=== PATIENT | male | born 1950 | race Caucasian/White ===

== ENCOUNTER 2017-03-18 01:24 | Emergency (ER) | payer MEDICARE, OTHER ==
[~2017-03-18 01:24] MED LIST: ALBU2.5V14 NEB; ALBU6.7H IH; ASPI81TA2 PO; DILT240C2 PO; DILT240T PO; FLUT1DIS3 PO; FURO80TA3 PO; HYDR-2762 PO; IPRA4AER AD; METF850T2 PO; NAPR500T3 PO; NYST60PO TD; POTA10CA PO; ZOLP10TA4 PF
--- NOTE | 2017-03-18 01:43 | ED.ADGEN ---
Past History Past Medical History: A-Fib, Arthritis, Asthma, CAD, CHF, COPD, Hypertension, Other Past Surgical History: No Surgical History, Cholecystectomy, Other Smoking: Cigarettes, Greater than 1 pack/day Alcohol Use: None Drug Use: None, Marijuana Adult General Chief Complaint Chief Complaint "... I guess.. I fell... or I blacked..out....".. " Hell .. I am just off.... " " I just left [place] yesterday....".. " I am short of breath... and just weak... and can't walk without falling..." HPI HPI Patient is a 66 year old male who presents with above hx and complaints. When paramedics arrived patient was hypoxic however was not on his nl. 2 L maintenance. Pt. has long hx. of COPD and does continue to smoke Tob. and MJ. Pt. advised he was discharged from [facility] yesterday for COPD and some bronchitis. Pt. somewhat poor historian. Pt. family called because of pt increased dyspnea , repeat falls and some confusion. Pt. complaints of increased coughing and dyspnea. Pt. denies any travel, or ill contacts. Pt. follows with Dr. Gunter. Review of Systems Review of Systems Constitutional: Subjective complaints of fever and chills [] Eyes: Denies change in visual acuity, redness, or eye pain [] HENT: Denies nasal congestion or sore throat [] Respiratory: complaints of cough and increased shortness of breath [] Cardiovascular: No additional information not addressed in HPI [] GI: Denies abdominal pain, nausea, vomiting, bloody stools or diarrhea [] : Denies dysuria or hematuria [] Musculoskeletal: Denies back pain or joint pain. Complaints of generalized weakness. Integument: Denies rash or skin lesions [] Neurologic: Denies headache, focal weakness or sensory changes []Complaints his balance is off and having difficultly in walking. Pt. states he is having some confusion. Endocrine: Denies polyuria or polydipsia [] Family History Family History Non-contributory Current Medications Current Medications Current Medications Medications (Trade) Dose Ordered Sig/Randy Start Time Stop Time Status Last Admin Dose Admin Albuterol/ Ipratropium (Duoneb) 3 ml 1X ONCE 03/18/17 01:45 03/18/17 02:14 DC 03/18/17 02:12 3 ML Azithromycin (Zithromax) 500 mg 1X ONCE 03/18/17 02:15 03/18/17 02:16 DC 03/18/17 02:15 500 MG Ceftriaxone Sodium (Rocephin Im) 2 gm 1X ONCE 03/18/17 04:00 03/18/17 04:01 DC 03/18/17 04:00 2 GM Lactated Ringer's (Iv Lactated Ringers) 1,000 ml @ 100 mls/hr Q10H 03/18/17 02:00 03/18/17 02:46 100 MLS/HR Lorazepam (Ativan) 1 mg 1X ONCE 03/18/17 04:00 03/18/17 04:01 DC 03/18/17 04:00 1 MG Magnesium Sulfate (Magnesium Sulfate PREMIX 2GM) 50 ml @ 25 mls/hr 1X ONCE 03/18/17 04:00 03/18/17 05:59 03/18/17 04:00 25 MLS/HR Methylprednisolone Sodium Succinate 125 mg 125 mg 1X ONCE 03/18/17 02:15 03/18/17 02:16 DC 03/18/17 02:15 125 MG See Nursing for home meds. Allergies Allergies Allergies Coded Allergies Type Severity Reaction Last Updated Verified No Known Drug Allergies 01/02/16 No Physical Exam Physical Exam Constitutional:moderate distress, non-toxic appearance. [] HENT: Normocephalic, atraumatic, bilateral external ears normal, oropharynx moist, no oral exudates, nose rhinorrhea. Eyes: PERRLA, EOMI, conjunctiva normal, no discharge. [] Neck: Normal range of motion, no tenderness, supple, no stridor. [] Cardiovascular: Tachycardia Heart rate, irregular rhythm, no murmur [, PMI to Lt. ] Lungs & Thorax: Bilateral breath sounds equal at apexes with scattered wheezes and rhonchi on auscultation []More rhonchi on rt mid and Lt posterior base. Abdomen: Bowel sounds normal, soft, no tenderness, no masses, no pulsatile masses. Old surgical scars.. Obese. Appears to have been getting heparin or lovenox injections in abdomen. Skin: Warm, dry, no erythema, no rash. Poor turgor. Back: No tenderness, no CVA tenderness. [] Extremities: No tenderness, no cyanosis, no clubbing, ROM intact, ankle edema. [ ] Neurologic: Alert and oriented X 3,, but slow to respond, does move all ext. on request, . distal sensory intact, Does appear to have trouble concentrating. Mild dis coordination. Psychologic: Affect anxious, judgement decrease insight, mood depressed. Current Patient Data Vital Signs Vital Signs Date Time Temp Pulse Resp B/P Pulse Ox O2 Delivery O2 Flow Rate FiO2 03/18/17 03:31 87 20 116/75 90 Nasal Cannula 6 03/18/17 01:25 98.0 Lab Results Laboratory Tests Test 03/18/17 01:30 03/18/17 02:25 Prothrombin Time 14.3SEC (9.4-11.4) H Prothrombin Time INR 1.4 (0.9-1.1) H PTT 26SEC (23-33) D-Dimer (Nelda) 1.20mg/L (0.00-0.50) H Urine Collection Type Unknown Urine Color Yellow Urine Clarity Clear Urine pH 5.0 Urine Specific [place] >=1.030 Urine Protein 100 mg/dl (NEG-TRACE) Urine Glucose (UA) Negmg/dL (NEG) Urine Ketones (Stick) Negmg/dL (NEG) Urine Blood Trace (NEG) Urine Nitrite Neg (NEG) Urine Bilirubin Neg (NEG) Urine Urobilinogen Dipstick 1mg/dL (0.2 mg/dL) Urine Leukocyte Esterase Neg (NEG) Urine RBC Occ/HPF (0-2) Urine WBC 1-4/HPF (0-4) Urine Squamous Epithelial Cells Few/LPF Urine Bacteria Few/HPF (0-FEW) Sodium Level 143mmol/L (136-145) Potassium Level 4.6mmol/L (3.5-5.1) Chloride Level 102mmol/L (98-107) Carbon Dioxide Level 42mmol/L (21-32) H Anion Gap -1 (6-14) L Blood Urea Nitrogen 20mg/dL (8-26) Creatinine 1.0mg/dL (0.7-1.3) Estimated GFR (Cockcroft-Gault) 74.5 Glucose Level 102mg/dL (70-99) H Calcium Level 9.1mg/dL (8.5-10.1) Magnesium Level 1.6mg/dL (1.8-2.4) L Total Bilirubin 0.5mg/dL (0.2-1.0) Direct Bilirubin 0.2mg/dL (0.0-0.2) Aspartate Amino Transferase (AST) 28U/L (15-37) Alanine Aminotransferase (ALT) 15U/L (16-63) L Alkaline Phosphatase 57U/L (46-116) Creatine Kinase 68U/L (39-308) Creatine Kinase MB (Mass) 0.7ng/mL (0.0-3.6) Creatine Kinase MB Relative Index 1.0% (0-4) Troponin I Quantitative < 0.017ng/mL (0-0.055) VV-Iey-Z-Type Natriuretic Peptide 1663pg/mL (0-124) H Total Protein 7.7g/dL (6.4-8.2) Albumin 3.4g/dL (3.4-5.0) Lipase 49U/L (73-393) L Urine Opiates Screen Pos (NEG) Urine Methadone Screen Neg (NEG) Urine Barbiturates Neg (NEG) Urine Phencyclidine Screen Neg (NEG) Urine Amphetamine/Methamphetamine Neg (NEG) Urine Benzodiazepines Screen Pos (NEG) Urine Cocaine Screen Neg (NEG) Urine Cannabinoids Screen Pos (NEG) Urine Ethyl Alcohol Neg (NEG) White Blood Count 73.6x10^3/uL (4.0-11.0) *H Red Blood Count 4.46x10^6/uL (4.30-5.70) Hemoglobin 13.3g/dL (13.0-17.5) Hematocrit 44.4% (39.0-53.0) Mean Corpuscular Volume 99fL (79-100) Mean Corpuscular Hemoglobin 30pg (25-35) Mean Corpuscular Hemoglobin Concent 30g/dL (31-37) L Red Cell Distribution Width 16.9% (11.5-14.5) H Platelet Count 182x10^3/uL (140-400) Neutrophils (%) (Auto) 88% (31-73) H Lymphocytes (%) (Auto) 5% (24-48) L Monocytes (%) (Auto) 5% (0-9) Eosinophils (%) (Auto) 1% (0-3) Basophils (%) (Auto) 1% (0-3) Neutrophils # (Auto) 64.6x10^3uL (1.8-7.7) H Lymphocytes # (Auto) 3.6x10^3/uL (1.0-4.8) Monocytes # (Auto) 3.7x10^3/uL (0.0-1.1) H Eosinophils # (Auto) 0.7x10^3/uL (0.0-0.7) Basophils # (Auto) 1.0x10^3/uL (0.0-0.2) H Segmented Neutrophils % 62% (35-66) Band Neutrophils % 15% (0-9) H Lymphocytes % 8% (24-48) L Monocytes % 3% (0-10) Eosinophils % 3% (0-5) Metamyelocytes % 7% (0-0) H Myelocytes % 2% (0-0) H Nucleated Red Blood Cells 2 Platelet Estimate Adequate (ADEQUATE) Hypochromasia Slight Anisocytosis Slight EKG EKG My interpretation of EKG shows tachycardia with[]irregular rhythm, afib in appearance. Radiology/Procedures Radiology/Procedures My interpretation of CXR shows cardiomegaly, COPD pattern, basilar infiltrates. Some increased cephalization consistent with CHF. CT head does show findings of a acute right sub-epidural hemorrhage with some midline shift. See formal report when available. Course & Med Decision Making Course & Med Decision Making Pertinent Labs and Imaging studies reviewed. (See chart for details). Discussed presentation, testing and tx. plan with Dr. Moore.-[facility]. Consult with Dr. Abebe. Pt. to be transferred to [facility] - ICU and repeat CT at 0800 hrs. Patient did advise that if he could not speak for himself- that Rodolfo Diaz at [phone] could make medical decisions on his behalf. Critical Care - 90 min. [] Final Impression Final Impression 1. Falling 2. COPD exacerbation 3. Pneumonia 4. Leukocytosis with bandemia 5. Hypo-magnesium 6. CHF 7. A. fib 8. Right sub-dural hemorrhage with possible midline shift 9. Marijuana and tobacco use [] Problems: Dragon Disclaimer Dragon Disclaimer This electronic medical record was generated, in whole or in part, using a voice recognition dictation system. KVNG RAYMOND MD Mar 18, 2017 01:43
[2017-03-18] MEDS: IPRATRPIUM/ALBUTEROL 0.5/2.5MG 3 ML NEBU. NEB ONE (02:12)
[2017-03-18] MEDS: AZITHROMYCIN 250 MG TABLET. PO ONE (02:15)
[2017-03-18] MEDS: methylPREDNISolone SOD SUCC PF 125 MG/2 ML VIAL. IV ONE (02:15)
[2017-03-18 02:19] LABS: ALBUMIN 3.4 g/dL (3.4-5.0); CALCIUM 9.1 mg/dL (8.5-10.1); DIRECT BILIRUBIN 0.2 mg/dL (0.0-0.2); GFR 74.5; MAGNESIUM 1.6 mg/dL (1.8-2.4); POTASSIUM 4.6 mmol/L (3.5-5.1); TOTAL BILIRUBIN 0.5 mg/dL (0.2-1.0); TOTAL PROTEIN 7.7 g/dL (6.4-8.2)
[2017-03-18 02:28] LABS: BARBITURATES NEG (NEG); BENZODIAZEPINES POS (NEG); CANNABINOIDS POS (NEG); COCAINE NEG (NEG); METHADONE NEG (NEG); OPIATES POS (NEG); PHENCYCLIDINE NEG (NEG)
[2017-03-18 02:30] LABS: AMPHETAMINE/METHAMPHETAMINE NEG (NEG)
--- NOTE | 2017-03-18 02:30 | RAD ---
PROCEDURE CT head without contrast 03/18/2017. HISTORY Weakness. Syncope and falls. TECHNIQUE Noncontrast images were performed. Exposure: One or more of the following individualized dose reduction techniques were utilized for this exam: 1. Automated exposure control. 2. Adjustment of the mA and/or kV according to patient size. 3. Use of iterative reconstruction technique. COMPARISON FINDINGS There is a subdural hemorrhage on the right side. This is seen over the frontal and parietal areas. It has greatest thickness of about 7 millimeters and appears acute. No intraparenchymal hemorrhage is seen. No other area of abnormal extra-axial fluid is identified. There is probably slight midline shift. This measures roughly 2-3 millimeters at the level of the frontal horns of the lateral ventricles. No area of abnormal density is identified within the brain. Bone windows reveal no apparent fracture of the skull or abnormal sinus or mastoid opacification. IMPRESSION Right-sided subdural hemorrhage with possible mild midline shift. Results were telephoned to Dr. Hickman in the emergency room at 2:28 a.m.. Electronically signed by: Darren Lancaster (Mar 18, 2017 02:29:08)
[2017-03-18 02:39] LABS: BACTERIA,URINE FEW /HPF (0-FEW); BILIRUBIN,URINE NEG (NEG); CLARITY,URINE CLEAR; COLOR,URINE YELLOW; GLUCOSE,URINE NEG (NEG); NITRITE,URINE NEG (NEG); RBC,URINE OCC /HPF (0-2); SQUAMOUS EPITHELIAL CELL,UR FEW /LPF; UROBILINOGEN,URINE 1 mg/dL (0.2 mg/dL)
[2017-03-18] MEDS: IV RINGERS SOLUTION,LACTATED 1,000 ML IV SCH (02:46)
--- NOTE | 2017-03-18 02:52 | EKG ---
[address] [address] Test Date: 2017-03-18 Test Time: 01:19:03 Pat Name: CHAYO DOMINGO Department: Room: Gender: M [employer]: YE : 1950 Requested By: KVNG RAYMOND Order Number: [id number] Reading MD: Cornlel Ayala Measurements Intervals [place] Rate: 105 P: [place]: QRS: 71 QRSD: 94 T: 43 QT: 332 QTc: 443 Interpretive Statements ATRIAL FIBRILLATION WITH RVR NON-SPECIFIC ST/T CHANGES Electronically Signed On 03-19-2017 15:39:24 CDT by Cornell Ayala
[2017-03-18 03:12] LABS: BASO % 1 % (0-3); EOS # 0.7 x10^3/uL (0.0-0.7); EOS % 1 % (0-3); HEMATOCRIT 44.4 % (39.0-53.0); HEMOGLOBIN 13.3 g/dL (13.0-17.5); LYMPH # 3.6 x10^3/uL (1.0-4.8); LYMPH % 5 % (24-48); MEAN CORPUSCULAR HEMOGLOBIN 30 pg (25-35); MEAN CORPUSCULAR HGB CONC 30 g/dL (31-37); MEAN CORPUSCULAR VOLUME 99 fL (79-100); MONO # 3.7 x10^3/uL (0.0-1.1); MONO % 5 % (0-9); NEUT # 64.6 x10^3uL (1.8-7.7); NEUT % 88 % (31-73); PLATELET COUNT 182 x10^3/uL (140-400); RED BLOOD COUNT 4.46 x10^6/uL (4.30-5.70); RED CELL DISTRIBUTION WIDTH 16.9 % (11.5-14.5)
[2017-03-18 03:15] LABS: WHITE BLOOD COUNT 73.6 x10^3/uL (4.0-11.0)
[2017-03-18 03:23] LABS: % BANDS 15 % (0-9); % EOS 3 % (0-5); % LYMPHS 8 % (24-48); % METAS 7 % (0-0); % MONOS 3 % (0-10); % MYELOS 2 % (0-0); % SEGS 62 % (35-66); NUCLEATED RBC 2; PLT ESTIMATE ADEQUATE (ADEQUATE)
[2017-03-18 03:24] LABS: ANISOCYTOSIS SLIGHT; HYPOCHROMIA SLIGHT
[2017-03-18 03:31] VITALS: BP 116/75
[2017-03-18] MEDS: MAGNESIUM SULFATE 2GM 50 ML IV ONE (04:00)
[2017-03-18] MEDS: LORAZEPAM 2 MG/ML VIAL IV ONE (04:00)
[2017-03-18] MEDS: CEFTRIAXONE IM 1 GM VIAL. IM ONE (04:00)
--- NOTE | 2017-03-18 07:27 | RAD ---
Chest, 2 views, 03/18/2017: History: Shortness of breath, fatigue Comparison is made of a study from 01/05/2016. The heart appears to be within normal limits in size for the AP technique. No pulmonary infiltrates are seen. There is no evidence of pleural fluid. IMPRESSION: No acute cardiopulmonary abnormality is detected.
== END 2017-03-18 04:10 | disposition short-term general hospital (02) ==
LOC: ER 01:24
DX: J44.1 Chronic obstructive pulmonary disease with (acute) exacerbation (principal); I62.00 Nontraumatic subdural hemorrhage, unspecified; J18.9 Pneumonia, unspecified organism; D72.825 Bandemia; R09.02 Hypoxemia; E83.42 Hypomagnesemia; I11.0 Hypertensive heart disease with heart failure; I50.9 Heart failure, unspecified; I48.91 Unspecified atrial fibrillation; M19.90 Unspecified osteoarthritis, unspecified site; I25.10 Atherosclerotic heart disease of native coronary artery without angina pectoris; F17.210 Nicotine dependence, cigarettes, uncomplicated; F12.10 Cannabis abuse, uncomplicated
CPT/HCPCS: 36415; 70450; 71020; 80048; 80076; 80305; 81001; 82553; 83690; 83735; 83880; 84443; 84484; 85007; 85027; 85379; 85610; 85730; 93005; 94640; 96361; 96365; 96372; 96375; 99291; 99292; J0456; J0696; J2060; J2930; J3475; J7120; J7620; G0481